=== PATIENT | male | born 1995 | race Caucasian/White ===

== ENCOUNTER 2022-03-06 01:32 | Emergency (ER) | payer SELFPAY ==
[2022-03-06 01:40] VITALS: BP 127/83; PULSE 110; RESP 20; TEMP 37.9; O2SAT 96
--- NOTE | 2022-03-06 03:41 | PC.NURSE ---
Pt and mother came to front office director and ask what BP was for pt which was 127/87. Then family and pt agreed that they were leaving without being seen and verbalized understanding to come back if s/s worsen or if He wanted to be evaluated.
[2022-03-06 03:49] LABS: Influenza A QL RT-PCR Negative (Negative); Influenza B QL RT-PCR Negative (Negative); SARS-CoV-2 RNA PCR Negative
== END 2022-03-06 03:41 | disposition left against medical advice (07) ==
LOC: ANHED 03:45
PROVIDERS: Emergency Provider General Practice
DX: R06.02 Shortness of breath (principal); Z20.822 Contact with and (suspected) exposure to COVID-19
CPT/HCPCS: 87502; 99199; U0003; U0005